=== PATIENT | female | born 1960 | race Two or more races ===

== ENCOUNTER 2018-10-31 21:15 | Emergency (ER) | payer OTHER ==
[~2018-10-31] VITALS: Ht 154.9 cm; Wt 99.8 kg
[~2018-10-31 21:15] MED LIST: MEDROLPACK PO; ZYRTEC10 MG PO
== END 2018-10-31 22:33 | disposition home or self-care (01) ==
LOC: ER 21:15
DX: L03.011 Cellulitis of right finger (principal)